=== PATIENT | female | born 2000 | race Caucasian/White ===

== ENCOUNTER 2024-10-16 15:26 | Emergency (ER) | payer SELFPAY ==
[~2024-10-16] VITALS: Ht 170.2 cm; Wt 71.3 kg
[2024-10-16 15:34] VITALS: PULSE 82; RESP 18; TEMP 98.1; O2SAT 100
[2024-10-16] MEDS ORDERED: IBUPROFEN800 MG PO (16:14)
[2024-10-16] MEDS ORDERED: DOXYCYCLINE HY100 MG PO (16:14)
[2024-10-16] MEDS: IBUPROFEN 200 MG TAB PO ONE (17:47)
== END 2024-10-16 17:47 | disposition home or self-care (01) ==
LOC: FSED 15:33 → EDBD 15:33 → FSED 17:47
DX: S63.92XA Sprain of unspecified part of left wrist and hand, initial encounter (principal); S00.81XA Abrasion of other part of head, initial encounter; L08.9 Local infection of the skin and subcutaneous tissue, unspecified; G89.11 Acute pain due to trauma; W19.XXXA Unspecified fall, initial encounter; Y93.9 Activity, unspecified; Y92.9 Unspecified place or not applicable
CPT/HCPCS: 99284